=== PATIENT | female | born 1970 | race Caucasian/White ===

== ENCOUNTER 2022-06-13 08:43 | Day surgery (SDC) | payer BC, SELFPAY ==
[2022-06-07 11:06] VITALS: BMI 21.6
[2022-06-13 09:21] VITALS: BP 121/70; PULSE 65; RESP 16; TEMP 37.4; O2SAT 97
--- NOTE | 2022-06-13 09:22 | P.CONAN_ITS ---
[facility] Active Problems Active Problems: All Active Problems (Updated 06/07/22 @ 11:01 by Rose Adams RN) Encounter for screening colonoscopy (Acute) Past Medical History Medical History (Updated 06/07/22 @ 11:01 by Rose Adams RN) Medical history unknown Family History Family History Mother Status post Mohs surgery for basal cell carcinoma HTN (hypertension) Diverticulitis Kidney stones Father Status post Mohs surgery for basal cell carcinoma HTN (hypertension) Kidney stones Carcinoid tumor Family hx of prostate cancer Family history of problems with anesthesia: No Surgical History Surgical History Hx of breast biopsy Hx of right knee surgery History of Problems with Anesthesia: No Social History Social History (Updated 11/24/21 @ 09:20 by Kristi Almonte PA-C) Household Members: Family Household Members Other:: - 2 kids- Alcohol intake: never Patient Tobacco Use Status: Never used Tobacco Use of substances other than those prescribed or required for medical reasons: No Are you DNR?: No Advance Directives: No Advance Directives Information Provided: Yes Current occupational status: employed Current occupation: [employer] Meds Allergies Allergy/AdvReac Type Severity Reaction Status Date / Time naproxen Allergy Severe Abdominal Verified 11/24/21 08:56 Pain amoxicillin [AMOXICILLIN] Allergy Mild RASH Verified 11/24/21 08:56 Home Medications Medication Instructions Recorded Confirmed Last Taken Type oxybutynin chloride 5 mg tablet 5 mg PO DAILY 11/24/21 06/07/22 Unknown History tamoxifen 20 mg tablet 20 mg PO DAILY 11/24/21 06/07/22 Unknown History Exam Exam Date and Time: June 13, 2022921 Height,Weight and Vital Signs: Height 5 ft 5 in Weight 58.967 kg Airway Mallampati Class: II (Caps laterally, one upper left) TM Dist: >3cm Neck ROM: Full Heart: rrr Lungs: cta Assessment and Plan Assessment Anesthesia Assessment: Anesthesia Plan Discussed and Chart Reviewed Final Anesthetic Review Family History of Problems with Anesthesia: No History of Problems with Anesthesia: No NPO: Yes ASA Class: II Final Preanesthetic Review: No Changes in Pt Med Stat, Meds/Allgs Chart Reviewed and Consent Obtained/Reviewed Patient Risk: Intermediate Procedure Risk: Intermediate Anesthetic Plan Anesthetic Plan: MAC: Disposition: Standard PACU
--- NOTE | 2022-06-13 10:08 | MHC.SHP ---
Pre-Procedural Eval Section A Date of Service: 06/13/22 Section B Chief Complaint: screening Details of Present Illness: 52y.o F here for index colo. Father hx of BCC and gastric carcinoid Relevant Family History (Specify if Yes): Yes Relevant Social History: None Present Medications: see Short Stay Collaborative assessment Medical History: Significant History History of Previous Operations: Relevant previous surgery/procedure and date(s) (Knee surgery ) Allergies: Allergies Allergy/AdvReac Type Severity Reaction Status Date / Time naproxen Allergy Severe Abdominal Verified 11/24/21 08:56 Pain amoxicillin [AMOXICILLIN] Allergy Mild RASH Verified 11/24/21 08:56 Review of Systems Review of Systems Comment: 10 point ROS negative except as above Exam Exam Comment: Gen appear: No acute distress, well nourished HEENT: no icterus Chest: No overt resp distress Abd: soft, nontender, nondistended Psych: Stable affect, answering questions appropriately Neuro: A/Ox3 noted to move all extremities spontaneously Ext: no peripheral edema Plan Diagnosis/Plan: Unchanged I have reviewed the history and physical and performed a pertinent physical examination on my patient. No changes have occurred unless specified. Time Spent With Patient Time: Total time managing care of this patient today ____ minutes.
--- NOTE | 2022-06-13 10:15 | P.OP_ITS ---
Operative Note Operative Note Date of Service: 06/13/22 Narrative: Procedure: Colonoscopy Indication: Screening Endoscopist: Teetee Talley MD Anesthesia Provider: Dr Milka Martino Anesthesia type: MAC Instrument: Olympus [id number]-H190L Consent: Indication, risks vs benefits, and alternatives were discussed with the patient who gave written informed consent to proceed. EKG, pulse, pulse oximetry and blood pressure were monitored throughout the procedure. Please see anesthesia flowsheet. Procedure: The patient was brought to the procedure room and placed in the left lateral decubitus position. IV medications were administered by the anesthesia provider in attendance. A digital rectal exam was performed which was normal. The colonoscope was then inserted through the anus and advanced through the colon to the cecum at 75 cm. Mucosa was carefully examined under high definition white light as the instrument was slowly withdrawn in a retrograde panoramic fashion. Retroflexion was performed in rectum. The procedure was not difficult. There were no immediate obvious complications. The quality of the prep was BBPS: 2+2+2 = adequate Withdrawal time 14 minutes. Limitations: No limitations. Findings: Mucosa: Prominent vascular blebs in sigmoid colon and rectum. Protruding lesions: * 1 sessile polyp of size 2 mm in ascending colon. Cold forceps polypectomy was performed. The polyp was completely removed and retrieved. * 1 sessile polyp of size 3 mm in descending colon. Cold forceps polypectomy was performed. The polyp was completely removed and retrieved. * Medium internal hemorrhoids without stigmata of recent bleeding. Impression: 1. Prominent vascular blebs in sigmoid colon and rectum ?blue rubber bleb nevi 2. Total of 2 polyps removed from ascending and descending colon. 3. Internal hemorrhoids Recommendations: - Follow path results. - Repeat colonoscopy in 5-7 years if polyps are adenomas, due to prep.
[2022-06-13] MEDS: Lactated Ringers 1,000 ML 50 ML IVCONT (10:17)
[2022-06-13 10:48] VITALS: BP 99/52; PULSE 66; RESP 16; TEMP 36.6; O2SAT 95
[2022-06-13 11:03] VITALS: BP 103/61; PULSE 58; RESP 16; O2SAT 99
[2022-06-13 11:10] VITALS: BP 102/60; PULSE 57; RESP 16; TEMP 36.9; O2SAT 99
== END 2022-06-13 11:48 | disposition home or self-care (01) ==
PROVIDERS: PCP Physician Assistant; Visit Provider Internal Medicine
PROC: 0DJD8ZZ Inspection of Lower Intestinal Tract, Via Natural or Artificial Opening Endoscopic (ICD-10-PCS; CPT 45378; principal; 2022-06-13 10:10)
DX: Z12.11 Encounter for screening for malignant neoplasm of colon (principal); D12.2 Benign neoplasm of ascending colon; D12.4 Benign neoplasm of descending colon; K64.8 Other hemorrhoids; K63.89 Other specified diseases of intestine; Z79.899 Other long term (current) drug therapy; Z88.0 Allergy status to penicillin; Z88.8 Allergy status to other drugs, medicaments and biological substances
CPT/HCPCS: 45380; 88305

== ENCOUNTER → 2022-06-28 07:24 | Outpatient (BNVA) | payer BC, SELFPAY | PROVIDERS: PCP Physician Assistant; Visit Provider Physician Assistant | DX: Z13.89 Encounter for screening for other disorder (principal) ==